=== PATIENT | male | born 1975 | race African-American/Black ===

== ENCOUNTER 2021-01-04 02:25 | Inpatient (IN) | payer MEDICAID ==
[~2021-01-04] VITALS: Ht 185.4 cm; Wt 117.5 kg
--- NOTE | 2021-01-04 02:35 | NUR ---
pt bibra c/o midepigastric pain since yesterday. Pt aaox4 breathing evenly and unlabored. Pt states he feels "burning in his chest that is relieved with melchor seltzer, but today he felt worse". Pt attached to monitor and pox. [place] and call light given
[2021-01-04 02:56] LABS: BASOPHILS # (AUTO) 0.1 /CMM (0.0-0.2); BASOPHILS % (AUTO) 0.9 % (0.0-2.0); EOSINOPHILS % (AUTO) 1.3 % (0.0-6.0); HEMATOCRIT 45 % (39-51); HEMOGLOBIN 14.6 g/dL (13.5-17.5); LYMPHOCYTES # (AUTO) 1.8 /CMM (0.8-4.8); LYMPHOCYTES % (AUTO) 29.9 % (20.0-44.0); MEAN CORPUSCULAR HGB CONC 32 g/dl (31.0-36.0); MEAN CORPUSCULAR VOLUME 84 fL (80-96); MONOCYTES # (AUTO) 0.6 /CMM (0.1-1.30); MONOCYTES % (AUTO) 9.1 % (2.0-12.0); NEUTROPHILS # (AUTO) 3.5 /CMM (1.8-8.9); NEUTROPHILS % (AUTO) 58.8 % (43.0-81.0); PLATELET COUNT (AUTO) 146 /CMM (150-450); RED BLOOD CELL COUNT(AUTO) 5.37 MIL/uL (4.5-6.0)
[2021-01-04] MEDS ORDERED: IV NS 0.9% 1,000 ML BAG IV ONE (03:00)
--- NOTE | 2021-01-04 03:00 | NUR ---
pt placed on 2L O2 for comfort
--- NOTE | 2021-01-04 03:01 | NUR ---
covid swab sent to lab
[2021-01-04] MEDS ORDERED: HYDR-4209 PO (03:02)
[2021-01-04] MEDS ORDERED: ATOR40TA PO (03:02)
[2021-01-04] MEDS ORDERED: CYAN-51 PO (03:02)
[2021-01-04] MEDS ORDERED: ASPI-1169 PO (03:02)
[2021-01-04] MEDS ORDERED: CHOL400T11 PO (03:02)
[2021-01-04] MEDS ORDERED: NITR0.4T48 SL (03:02)
[2021-01-04] MEDS ORDERED: MELA3TAB41 PO (03:02)
[2021-01-04] MEDS ORDERED: AMLO-213 PO (03:02)
[2021-01-04] MEDS ORDERED: CLOP75TA15 PO (03:02)
[2021-01-04] MEDS ORDERED: GABA-532 PO (03:02)
[2021-01-04] MEDS ORDERED: METO50TA16 PO (03:02)
[2021-01-04] MEDS ORDERED: LEVE250T2 PO (03:02)
[2021-01-04 03:12] LABS: ALANINE AMINOTRANSFERASE 43 U/L (12-78); ALBUMIN 3.9 g/dL (3.4-5.0); ALKALINE PHOSPHATASE 80 U/L (46-116); ASPARTATE AMINOTRANSFERASE 24 U/L (15-37); BILIRUBIN,DIRECT 0.1 mg/dL (0.0-0.2); BILIRUBIN,TOTAL 0.4 mg/dL (0.2-1.0); CALCIUM, SERUM 8.7 mg/dL (8.5-10.1); CARBON DIOXIDE 26 mmol/L (21-32); CHLORIDE 105 mmol/L (98-107); CREATININE 1.9 mg/dL (0.6-1.3); GLUCOSE 130 mg/dL (74-106); LIPASE 241 U/L (73-393); POTASSIUM 3.9 mmol/L (3.5-5.1); SODIUM SERUM 142 mmol/L (136-145); TOTAL PROTEIN, SERUM 7.6 g/dL (6.4-8.2); UREA NITROGEN, BLOOD 15 mg/dL (7-18)
--- NOTE | 2021-01-04 03:26 | NUR ---
taken to ct
--- NOTE | 2021-01-04 04:06 | NUR ---
DR. PA SPEAKING WITH EDIL KIRKLAND NP REGARDING ADMISSION
--- NOTE | 2021-01-04 04:50 | NUR ---
gave report to GUERA Ma for ronnie
[2021-01-04 05:20] VITALS: BP 148/96
[2021-01-04] MEDS ORDERED: ONDANSETRON HCL/PF 4 MG/2 ML VIAL IVP PRN (06:30)
[2021-01-04] MEDS ORDERED: ACETAMINOPHEN 325 MG TABLET PO PRN (06:30)
[2021-01-04] MEDS ORDERED: HYDROCODONE/APAP 5/325MG TABLET PO PRN (06:30)
[2021-01-04] MEDS ORDERED: MAG HYDROX/AL HYDROX/SIMETH 30 ML UDC PO PRN (06:30)
[2021-01-04] MEDS ORDERED: MAGNESIUM HYDROXIDE 30 ML UDC PO PRN (06:30)
[2021-01-04] MEDS ORDERED: NITROGLYCERIN 0.4 MG/TAB BOTTLE SL PRN (06:30)
[2021-01-04] MEDS ORDERED: Medication Not On Formulary EA (Melatonin 3 MG) PO SCH (07:00)
--- NOTE | 2021-01-04 07:58 | NUR ---
PROCESS ENVIRONMENTAL TECHNICIAN OPENING NOTE PATIENT IS IN BED RESTING, PATIENT IS IN NO ACUTE DISTRESS. PATIENT IS ON OXYGEN 2L VIA NASAL CANNULA. PATIENT IS ON TELE MONITOR READING SR 81. SAFETY PRECAUTIONS ARE ON. BED IS LOCKED IN THE LOWEST POSITION WITH SIDE RAILS UP, CALL LIGHT WITHIN REACH, WILL CONTINUE TO MONITOR CLOSELY THROUGHOUT THE SHIFT.
[2021-01-04] MEDS ORDERED: METOPROLOL TARTRATE 50 MG TABLET PO SCH (09:00)
[2021-01-04] MEDS: CYANOCOBALAMIN 500 MCG TABLET PO SCH (09:35)
[2021-01-04] MEDS: PANTOPRAZOLE 40 MG TABLET.DR PO SCH (09:35)
[2021-01-04] MEDS: CHOLECALCIFEROL (VITAMIN D 3) 400 UNIT TABLET PO SCH (09:36)
[2021-01-04] MEDS: CLOPIDOGREL BISULFATE 75 MG TABLET PO SCH (09:36)
[2021-01-04] MEDS: GABAPENTIN 100 MG CAPSULE PO SCH ×3 (09:36→17:15)
[2021-01-04] MEDS: AMLODIPINE BESYLATE 10 MG TABLET PO SCH (09:37)
[2021-01-04] MEDS: LEVETIRACETAM (250 MG) 250 MG TABLET PO SCH ×2 (09:37→21:06)
[2021-01-04] MEDS: ASPIRIN 81 MG TAB.CHEW PO SCH (09:39)
[2021-01-04 10:23] LABS: CHOLESTEROL 147 mg/dL (<200); HDL CHOLESTEROL 44 mg/dL (40-60); LDL 95 mg/dL (0-99); TRIGLYCERIDES 166 mg/dL (30-150)
[2021-01-04] MEDS ORDERED: METOPROLOL TARTRATE INJ 5 MG/5 ML AMPUL ONE ×3 (11:17→11:45)
[2021-01-04] MEDS ORDERED: IV NS 0.9% 250 ML IV ONE (11:17)
[2021-01-04] MEDS ORDERED: IOHEXOL-350 100 ML VIAL IV ONE (11:17)
[2021-01-04] MEDS ORDERED: CT SWABBABLE VALVE TRANS SET 1 EA INFUS.SET MC ONE (11:17)
[2021-01-04] MEDS ORDERED: NITROGLYCERIN 0.4 MG/TAB BOTTLE ONE (11:17)
[2021-01-04] MEDS: METOPROLOL TARTRATE INJ 5 MG/5 ML AMPUL IVP PRN ×10 (11:34→12:19)
[2021-01-04] MEDS ORDERED: NITROGLYCERIN 0.4 MG/TAB BOTTLE SL ONE (12:00)
[2021-01-04] MEDS: METOPROLOL TARTRATE 50 MG TABLET PO SCH ×2 (12:53→17:16)
--- NOTE | 2021-01-04 18:44 | NUR ---
STRUCTURAL IRON WORKER CLOSING NOTE PATIENT IS IN BED RESTING, PATIENT IS IN NO ACUTE DISTRESS. PATIENT IS ON OXYGEN 2L VIA NASAL CANNULA. PATIENT IS ON TELE MONITOR READING SR 80s. SAFETY PRECAUTIONS ARE ON. BED IS LOCKED IN THE LOWEST POSITION WITH SIDE RAILS UP, CALL LIGHT WITHIN REACH, ENDORSE PATIENT TO COUNTY SUPERINTENDENT OF [employer] NURSE FOR FANNY.
--- NOTE | 2021-01-04 19:15 | NUR ---
RN OPENING NOTE PATIENT IN BED AWAKE AND ALERT, PATIENT ABLE TO MAKE NEEDS KNOWN. PATIENT CURRENTLY ON 2 L OF OXYGEN SUPPLEMENTATION, BREATHING EVEN AND UNLABORED. IV ACCESS INTACT. SAFETY MEASURES IN PLACE: BED IN LOCKED AND LOWEST POSITION, HOB UP, SIDE RAILS UP, CALL LIGHT WITHIN REACH. WILL MONITOR PATIENT CLOSELY.
[2021-01-04 20:00] VITALS: BP 103/74
[2021-01-04] MEDS ORDERED: ATORVASTATIN 40 MG TABLET PO SCH (22:00)
[2021-01-05] VITALS: BP 93/64
--- NOTE | 2021-01-05 01:00 | NUR ---
BP @ 2400 93/64, METOPROLOL HELD, BP RECHECKED NOW 136/90
[2021-01-05 04:00] VITALS: BP 95/57
--- NOTE | 2021-01-05 05:00 | NUR ---
BP @ 0400 95/57, RE-CHECKED 135/92.
[2021-01-05 06:03] LABS: BILIRUBIN,URINE NEGATIVE (NEGATIVE); COLOR,URINE YELLOW (YELLOW); LEUKOCYTE ESTERASE ,URINE NEGATIVE (NEGATIVE); NITRITE, URINE NEGATIVE (NEGATIVE); PROTEIN,URINE NEGATIVE (NEGATIVE); UGLUCOSE NEGATIVE (NEGATIVE); UROBILINOGEN,URINE 0.2 EU/dL (0.2)
[2021-01-05] MEDS: METOPROLOL TARTRATE 50 MG TABLET PO SCH ×2 (06:18)
[2021-01-05 06:19] LABS: CREATININE, URINE 100.5 MG/DL (30.0-125.0); URINE TOTAL PROTEIN 15.9 mg/dL (0-11.9)
[2021-01-05 06:54] LABS: BASOPHILS % (AUTO) 0.7 % (0.0-2.0); EOSINOPHILS % (AUTO) 2.1 % (0.0-6.0); HEMATOCRIT 44 % (39-51); LYMPHOCYTES # (AUTO) 1.4 /CMM (0.8-4.8); LYMPHOCYTES % (AUTO) 26.7 % (20.0-44.0); MEAN CORPUSCULAR HGB CONC 32 g/dl (31.0-36.0); MEAN CORPUSCULAR VOLUME 84 fL (80-96); MONOCYTES # (AUTO) 0.5 /CMM (0.1-1.30); MONOCYTES % (AUTO) 9.5 % (2.0-12.0); NEUTROPHILS # (AUTO) 3.1 /CMM (1.8-8.9); PLATELET COUNT (AUTO) 120 /CMM (150-450); WHITE BLOOD COUNT (AUTO) 5.1 K/uL (4.3-11.0)
[2021-01-05 07:10] LABS: CALCIUM, SERUM 9.1 mg/dL (8.5-10.1); MAGNESIUM 1.8 mg/dL (1.8-2.4); PHOSPHORUS 4.2 mg/dL (2.5-4.9); POTASSIUM 3.9 mmol/L (3.5-5.1)
--- NOTE | 2021-01-05 07:27 | NUR ---
RN CLOSING NOTE PATIENT IN BED RESTING, EASILY AROUSED. PATIENT STILL ON 2 L OF OXYGEN SUPPLEMENTATION, TOLERATING, BREATHING EVEN AND UNLABORED. IV ACCESS STILL INTACT. SAFETY MEASURES IN PLACE: BED IN LOCKED AND LOWEST POSITION, HOB UP, SIDE RAILS UP, CALL LIGHT WITHIN REACH. ALL NEEDS MET AND ATTENDED. ENDORSED TO DAY SHIFT NURSE FOR FANNY.
--- NOTE | 2021-01-05 07:30 | NUR ---
RN OPENING NOTE PT LYING SEMIFOWLER'S IN BED, A/Ox3/3, BREATHING RA SPO2 98% WITH NO SIGNS OF RESP DISTRESS OR SOB. PT DENIES PAIN. PT AMBULATORY, STEADY GAIT. SKIN INTACT. LAC #18 SL, FLUSHED, INTACT AND PATENT, NO S/S OF INFILTRATION OR INFECTION. PT SR ON TELE HR 75. ALL PT SAFETY PRECAUTIONS IN PLACE, WILL CONT TO MONITOR
[2021-01-05 08:00] VITALS: BP 119/72
[2021-01-05] MEDS ORDERED: METOPROLOL SUCCINATE 50 MG TAB.SR.24H PO SCH (08:00)
[2021-01-05] MEDS: CYANOCOBALAMIN 500 MCG TABLET PO SCH (08:49)
[2021-01-05] MEDS: ASPIRIN 81 MG TAB.CHEW PO SCH (08:49)
[2021-01-05] MEDS: CLOPIDOGREL BISULFATE 75 MG TABLET PO SCH (08:50)
[2021-01-05] MEDS: LEVETIRACETAM (250 MG) 250 MG TABLET PO SCH (08:50)
[2021-01-05] MEDS: PANTOPRAZOLE 40 MG TABLET.DR PO SCH (08:50)
[2021-01-05] MEDS: GABAPENTIN 100 MG CAPSULE PO SCH ×2 (08:50→12:24)
[2021-01-05] MEDS: CHOLECALCIFEROL (VITAMIN D 3) 400 UNIT TABLET PO SCH (08:58)
[2021-01-05 11:06] VITALS: BP 113/61
[2021-01-05] MEDS: AMLODIPINE BESYLATE 10 MG TABLET PO SCH (11:06)
[2021-01-05] MEDS ORDERED: PANT40TA2 PO (14:41)
[2021-01-05] MEDS ORDERED: METF-440 PO (14:41)
[2021-01-05] MEDS ORDERED: METO50TA7 PO (14:41)
--- NOTE | 2021-01-05 15:05 | NUR ---
RN NOTE PT DISCHARGED IN STABLE CONDITION. REPORT GIVEN TO EMT
== END 2021-01-05 15:06 | DRG 243 ==
LOC: ER 02:29 → TELE1 04:38 → MEDSG1 01-05 11:20
PROVIDERS: ADMIT Registered Nurse; ATTEND Registered Nurse
DX: K21.9 Gastro-esophageal reflux disease without esophagitis (principal); N17.0 Acute kidney failure with tubular necrosis; G40.909 Epilepsy, unspecified, not intractable, without status epilepticus; I10 Essential (primary) hypertension; J44.9 Chronic obstructive pulmonary disease, unspecified; E78.5 Hyperlipidemia, unspecified; I12.9 Hypertensive chronic kidney disease with stage 1 through stage 4 chronic kidney disease, or unspecified chronic kidney disease; I25.2 Old myocardial infarction; N18.9 Chronic kidney disease, unspecified; I25.10 Atherosclerotic heart disease of native coronary artery without angina pectoris; Z79.899 Other long term (current) drug therapy; Z86.16 Personal history of COVID-19; Z95.5 Presence of coronary angioplasty implant and graft; Z88.0 Allergy status to penicillin; Z91.048 Other nonmedicinal substance allergy status; Z79.02 Long term (current) use of antithrombotics/antiplatelets; Z79.82 Long term (current) use of aspirin; M51.26 Other intervertebral disc displacement, lumbar region; E11.22 Type 2 diabetes mellitus with diabetic chronic kidney disease; E66.01 Morbid (severe) obesity due to excess calories; J98.11 Atelectasis; Z68.34 Body mass index [BMI] 34.0-34.9, adult
CPT/HCPCS: 36415; 71045-TC; 75574; 76770-TC; 80048-TC; 80061-TC; 80076-TC; 82570-TC; 83690-TC; 83735-TC; 84100-TC; 84155-TC; 84300-TC; 84484-TC; 85025-TC; 87081-TC; 93307-TC; C9803; G0378; J3490; J7050; Q9967

== ENCOUNTER 2021-01-20 04:48 | Emergency (ER) | payer MEDICAID ==
[~2021-01-20] VITALS: Ht 185.4 cm; Wt 108.0 kg
[~2021-01-20 04:48] MED LIST: AMLO-213 PO; ASPI-1169 PO; ATOR40TA PO; CHOL400T11 PO; CLOP75TA15 PO; CYAN-51 PO; GABA-532 PO; LEVE250T2 PO; MELA3TAB41 PO; METF-440 PO; METO50TA7 PO; NITR0.4T48 SL; PANT40TA2 PO
--- NOTE | 2021-01-20 04:52 | NUR ---
pt bibra c/o midsternal CP that started friday night. Pt aaox4 breathing evenly and unlabored. Pt took 2 nitro and was given 1 nitro by EMS and 325mg aspirin. Pt skin warm, dry, and intact. Left ac 18g initiated RELAY WORKER. Blood obtained and sent to lab. Pt attached to monitor. EMT at bedside for ekg. Pt given blanket and call light within reach
--- NOTE | 2021-01-20 05:00 | NUR ---
Pt placed on 1L O2 for comfort
--- NOTE | 2021-01-20 05:10 | NUR ---
called lab for specimen hand picker
[2021-01-20 05:20] LABS: BASOPHILS # (AUTO) 0.1 /CMM (0.0-0.2); BASOPHILS % (AUTO) 0.7 % (0.0-2.0); EOSINOPHILS % (AUTO) 1.9 % (0.0-6.0); HEMATOCRIT 42 % (39-51); HEMOGLOBIN 13.7 g/dL (13.5-17.5); LYMPHOCYTES % (AUTO) 29.3 % (20.0-44.0); MEAN CORPUSCULAR HGB CONC 33 g/dl (31.0-36.0); MEAN CORPUSCULAR VOLUME 82 fL (80-96); MONOCYTES # (AUTO) 0.5 /CMM (0.1-1.30); MONOCYTES % (AUTO) 7.5 % (2.0-12.0); NEUTROPHILS # (AUTO) 4.2 /CMM (1.8-8.9); NEUTROPHILS % (AUTO) 60.6 % (43.0-81.0); PLATELET COUNT (AUTO) 157 /CMM (150-450); RED BLOOD CELL COUNT(AUTO) 5.08 MIL/uL (4.5-6.0); WHITE BLOOD COUNT (AUTO) 6.9 K/uL (4.3-11.0)
[2021-01-20 05:32] LABS: CARBON DIOXIDE 29 mmol/L (21-32); CHLORIDE 104 mmol/L (98-107); GLUCOSE 110 mg/dL (74-106); POTASSIUM 3.7 mmol/L (3.5-5.1); SODIUM SERUM 142 mmol/L (136-145); UREA NITROGEN, BLOOD 16 mg/dL (7-18)
[2021-01-20 05:37] LABS: ALANINE AMINOTRANSFERASE 23 U/L (12-78); ALKALINE PHOSPHATASE 69 U/L (46-116); ASPARTATE AMINOTRANSFERASE 13 U/L (15-37); BILIRUBIN,DIRECT 0.1 mg/dL (0.0-0.2); BILIRUBIN,TOTAL 0.4 mg/dL (0.2-1.0); TOTAL PROTEIN, SERUM 7.4 g/dL (6.4-8.2)
--- NOTE | 2021-01-20 05:43 | NUR ---
repeat Troponin at 0843
[2021-01-20] MEDS ORDERED: MAG HYDROX/AL HYDROX/SIMETH 30 ML UDC ONE (05:45)
[2021-01-20] MEDS ORDERED: MAG HYDROX/AL HYDROX/SIMETH 30 ML UDC PO ONE (06:00)
--- NOTE | 2021-01-20 07:05 | NUR ---
gave report to GUERA Warren for ronnie
--- NOTE | 2021-01-20 08:31 | NUR ---
CALLED DR. HYDE TO CALL US BACK.
[2021-01-20] MEDS ORDERED: FAMO-131 PO (08:46)
--- NOTE | 2021-01-20 08:52 | NUR ---
CALLED [facility] FOR ETA OF 1200 PER CECILE
--- NOTE | 2021-01-20 08:54 | NUR ---
CALLED [facility] FOR TRANSPORT ETA 30 PER MARISA
[2021-01-20 09:37] VITALS: BP 133/83
--- NOTE | 2021-01-20 09:37 | NUR ---
patient picked up by private ambulance going back to board and care in no distress. IV removed. Catheter intact and site benign. Pressure and 4x4 applied to site. No bleeding noted.
== END 2021-01-20 09:37 ==
LOC: ER 04:50
DX: R07.89 Other chest pain (principal); I10 Essential (primary) hypertension; I25.2 Old myocardial infarction; E78.5 Hyperlipidemia, unspecified; Z98.890 Other specified postprocedural states; Z86.16 Personal history of COVID-19; Z88.0 Allergy status to penicillin; Z91.048 Other nonmedicinal substance allergy status; Z79.899 Other long term (current) drug therapy; Z79.82 Long term (current) use of aspirin
CPT/HCPCS: 36415; 71045-TC; 80048-TC; 80076-TC; 84484-TC; 85025-TC; 85730-TC

== ENCOUNTER 2021-01-30 01:13 | Emergency (ER) | payer MEDICAID ==
[~2021-01-30] VITALS: Ht 185.4 cm; Wt 106.6 kg
[~2021-01-30 01:13] MED LIST changes: +FAMO-131 PO; -NITR0.4T48 SL
--- NOTE | 2021-01-30 01:15 | NUR ---
MAYNOR 102 FROM [facility] FRO C/O MIDSTERNAL, NON RADIATING CP 02/24. REC'D NITRO 0.4MG SL AND ASA 324 PO RADIO ELECTRONICS TECHNICIAN. PT WAS ASSISTED TO BED 12 ER , WAS PLACED ON A MONITOR . VSS. WILL CONT TO MONITOR,
[2021-01-30 01:40] LABS: BASOPHILS # (AUTO) 0.1 /CMM (0.0-0.2); BASOPHILS % (AUTO) 1.1 % (0.0-2.0); EOSINOPHILS % (AUTO) 1.2 % (0.0-6.0); HEMATOCRIT 44 % (39-51); HEMOGLOBIN 14.2 g/dL (13.5-17.5); LYMPHOCYTES # (AUTO) 2.1 /CMM (0.8-4.8); MEAN CORPUSCULAR HGB CONC 32 g/dl (31.0-36.0); MEAN CORPUSCULAR VOLUME 84 fL (80-96); MONOCYTES # (AUTO) 0.7 /CMM (0.1-1.30); NEUTROPHILS # (AUTO) 5.4 /CMM (1.8-8.9); NEUTROPHILS % (AUTO) 64.7 % (43.0-81.0); PLATELET COUNT (AUTO) 164 /CMM (150-450); RED BLOOD CELL COUNT(AUTO) 5.28 MIL/uL (4.5-6.0); WHITE BLOOD COUNT (AUTO) 8.3 K/uL (4.3-11.0)
[2021-01-30 01:52] LABS: CALCIUM, SERUM 9.5 mg/dL (8.5-10.1); CARBON DIOXIDE 29 mmol/L (21-32); CHLORIDE 104 mmol/L (98-107); CREATININE 2.1 mg/dL (0.6-1.3); GLUCOSE 113 mg/dL (74-106); POTASSIUM 4.3 mmol/L (3.5-5.1); SODIUM SERUM 143 mmol/L (136-145); UREA NITROGEN, BLOOD 22 mg/dL (7-18)
--- NOTE | 2021-01-30 05:53 | NUR ---
REPORT CALLED TO [facility] STAFF.
--- NOTE | 2021-01-30 06:00 | NUR ---
TRANSPORT CALLED ([facility]) ETA 1 HOUR
[2021-01-30 06:13] VITALS: BP 133/89
--- NOTE | 2021-01-30 07:14 | NUR ---
[facility] AT BED SIDE TO SUPERVISOR KEYMODULE ASSEMBLY THE PT
== END 2021-01-30 07:22 | disposition home or self-care (01) ==
LOC: ER 01:14
DX: R07.89 Other chest pain (principal); I10 Essential (primary) hypertension; I25.2 Old myocardial infarction; E78.5 Hyperlipidemia, unspecified; Z95.5 Presence of coronary angioplasty implant and graft; Z88.0 Allergy status to penicillin; Z91.09 Other allergy status, other than to drugs and biological substances; Z79.82 Long term (current) use of aspirin; Z79.899 Other long term (current) drug therapy
CPT/HCPCS: 36415; 71045-TC; 80048-TC; 84484-TC; 85025-TC

== ENCOUNTER 2021-02-09 00:19 | Emergency (ER) | payer MEDICAID ==
[~2021-02-09] VITALS: Ht 185.4 cm; Wt 106.6 kg
--- NOTE | 2021-02-09 00:25 | NUR ---
PT BIBRA C/O MIDSTERNAL CP AND FEELING "IRREGULAR HEARTBEATS". PT AAOX4 BREATHING EVENLY AND UNLABORED. PT ATTACHED TO AIRPLANE RENTAL CLERK AND POX. EMT AT BEDSIDE FOR EKG. MD AT BEDSIDE FOR EVAL. PT GIVEN BLANKET AND CALL LIGHT WITHIN REACH
--- NOTE | 2021-02-09 00:29 | NUR ---
LAB AT BEDSIDE
[2021-02-09 00:46] LABS: BASOPHILS # (AUTO) 0.1 K/uL (0.0-0.2); BASOPHILS % (AUTO) 0.8 % (0.0-2.0); EOSINOPHILS % (AUTO) 1.3 % (0.0-6.0); HEMATOCRIT 42 % (39-51); HEMOGLOBIN 13.4 g/dL (13.5-17.5); LYMPHOCYTES # (AUTO) 1.5 K/uL (0.8-4.8); LYMPHOCYTES % (AUTO) 20.2 % (20.0-44.0); MEAN CORPUSCULAR HGB CONC 32 g/dl (31.0-36.0); MEAN CORPUSCULAR VOLUME 83 fL (80-96); MONOCYTES # (AUTO) 0.5 K/uL (0.1-1.30); MONOCYTES % (AUTO) 6.4 % (2.0-12.0); NEUTROPHILS # (AUTO) 5.3 K/uL (1.8-8.9); NEUTROPHILS % (AUTO) 71.3 % (43.0-81.0); PLATELET COUNT (AUTO) 158 K/uL (150-450); RED BLOOD CELL COUNT(AUTO) 5.03 MIL/uL (4.5-6.0); WHITE BLOOD COUNT (AUTO) 7.4 K/uL (4.3-11.0)
[2021-02-09 01:49] LABS: CALCIUM, SERUM 8.8 mg/dL (8.5-10.1); CARBON DIOXIDE 30 mmol/L (21-32); CHLORIDE 103 mmol/L (98-107); GLUCOSE 104 mg/dL (74-106); POTASSIUM 3.9 mmol/L (3.5-5.1); SODIUM SERUM 141 mmol/L (136-145); UREA NITROGEN, BLOOD 17 mg/dL (7-18)
--- NOTE | 2021-02-09 05:08 | NUR ---
[facility] CALLED FOR TRANSPORT. ETA 60 MINUTES.
--- NOTE | 2021-02-09 05:50 | NUR ---
Patient discharged to home in stable condition. Written and verbal after care instructions given. Patient verbalizes understanding of instruction.
--- NOTE | 2021-02-09 05:50 | NUR ---
gave report to ems
[2021-02-09 06:07] VITALS: BP 126/85
== END 2021-02-09 05:50 | disposition home or self-care (01) ==
LOC: ER 00:21
DX: R00.2 Palpitations (principal); I10 Essential (primary) hypertension; I25.2 Old myocardial infarction; E78.5 Hyperlipidemia, unspecified; Z98.890 Other specified postprocedural states; Z88.0 Allergy status to penicillin; Z91.048 Other nonmedicinal substance allergy status; Z79.899 Other long term (current) drug therapy; Z79.82 Long term (current) use of aspirin
CPT/HCPCS: 36415; 71045-TC; 80048-TC; 83880; 84484-TC; 85025-TC

== ENCOUNTER 2021-02-12 22:28 | Emergency (ER) | payer MEDICAID ==
[~2021-02-12] VITALS: Ht 185.4 cm; Wt 117.9 kg
[2021-02-12 22:28] VITALS: BP 122/78
[2021-02-12] MEDS ORDERED: HYDR-4209 PO (23:10)
[2021-02-12] MEDS ORDERED: ONDANSETRON 4 MG TAB.RAPDIS SL ONE (23:30)
[2021-02-12] MEDS ORDERED: HYDROCODONE/APAP 10/325MG TABLET PO ONE (23:30)
--- NOTE | 2021-02-12 23:33 | NUR ---
CALLED [facility] WILL COME WITHIN 45MINUTES -1HR.
[2021-02-12] MEDS ORDERED: ONDANSETRON 4 MG TAB.RAPDIS ONE (23:34)
[2021-02-12] MEDS ORDERED: HYDROCODONE/APAP 10/325MG TABLET ONE (23:34)
--- NOTE | 2021-02-12 23:40 | NUR ---
report given to SHAWN verma at the [facility].
--- NOTE | 2021-02-12 23:55 | NUR ---
[facility] WAS REASSIGNED TO TAKE THIS PT BACK TO HIS FACILIY INSTEAD OF ANOTHER PT. UNIT IS HERE NOW FOR TRANSPORT.
--- NOTE | 2021-02-13 00:17 | NUR ---
PT WAS PICKED UP BY [facility] IN STABLE CONDITION VIA GURNEY AND WAS TRANSFERRED BACK TO THE FACILITY
[2021-02-14] MEDS ORDERED: CYCL5TAB PO (00:41)
[2021-02-14] MEDS ORDERED: ACET-2605 PO (00:41)
== END 2021-02-13 00:41 ==
LOC: ER 22:30
DX: G89.29 Other chronic pain (principal); M54.5 Low back pain; R20.2 Paresthesia of skin; I10 Essential (primary) hypertension; I25.2 Old myocardial infarction; E78.5 Hyperlipidemia, unspecified; J45.909 Unspecified asthma, uncomplicated; Z95.818 Presence of other cardiac implants and grafts; Z88.0 Allergy status to penicillin; Z91.048 Other nonmedicinal substance allergy status; Z79.899 Other long term (current) drug therapy; Z79.82 Long term (current) use of aspirin; Z79.84 Long term (current) use of oral hypoglycemic drugs
CPT/HCPCS: 82962; 99283; Q0162

== ENCOUNTER 2021-02-13 23:18 | Emergency (ER) | payer MEDICAID ==
[~2021-02-13] VITALS: Ht 188 cm; Wt 117.9 kg
[~2021-02-13 23:18] MED LIST changes: +HYDR-4209 PO
--- NOTE | 2021-02-13 23:21 | NUR ---
PT [facility] C/O CHRONIC LOW BACK PAIN. PLACED IN BED 7 ON MONITOR AND PULSE OX. AWAITING ER MD FOR EVAL AND ORDERS.
[2021-02-13] MEDS ORDERED: HYDROCODONE/APAP 5/325MG TABLET PO ONE (23:30)
[2021-02-13] MEDS ORDERED: HYDROCODONE/APAP 5/325MG TABLET ONE (23:33)
[2021-02-14] MEDS ORDERED: CYCL5TAB PO (00:41)
[2021-02-14] MEDS ORDERED: ACET-2605 PO (00:41)
--- NOTE | 2021-02-14 00:58 | NUR ---
Elis marcos in [facility] - 02/14/21 at 0101 by MICHAEL CALLED [facility], ETA 90 MINS
--- NOTE | 2021-02-14 01:00 | NUR ---
CALLED [facility], ETA 90 MINS.
--- NOTE | 2021-02-14 02:14 | NUR ---
CALLED FACILITY, SPOKE TO [facility] FOR UPDATE. PT TRANSFERED BACK.
[2021-02-14 02:15] VITALS: BP 129/73
== END 2021-02-14 02:15 | disposition home or self-care (01) ==
LOC: ER 23:19
DX: G89.29 Other chronic pain (principal); M54.16 Radiculopathy, lumbar region; I10 Essential (primary) hypertension; I25.2 Old myocardial infarction; E78.5 Hyperlipidemia, unspecified; J45.909 Unspecified asthma, uncomplicated; Z98.890 Other specified postprocedural states; Z88.0 Allergy status to penicillin; Z91.048 Other nonmedicinal substance allergy status; Z79.899 Other long term (current) drug therapy; Z79.82 Long term (current) use of aspirin
CPT/HCPCS: 72131-TC

== ENCOUNTER 2021-02-15 23:01 | Emergency (ER) | payer MEDICAID ==
[~2021-02-15] VITALS: Ht 190.5 cm; Wt 117.9 kg
[~2021-02-15 23:01] MED LIST changes: +ACET-2605 PO; +CYCL5TAB PO
[2021-02-15] MEDS ORDERED: ONDANSETRON HCL/PF 4 MG/2 ML VIAL ONE (23:12)
[2021-02-15 23:22] LABS: BASOPHILS # (AUTO) 0.1 K/uL (0.0-0.2); EOSINOPHILS % (AUTO) 1.4 % (0.0-6.0); HEMATOCRIT 39 % (39-51); HEMOGLOBIN 12.4 g/dL (13.5-17.5); LYMPHOCYTES # (AUTO) 1.7 K/uL (0.8-4.8); LYMPHOCYTES % (AUTO) 21.5 % (20.0-44.0); MEAN CORPUSCULAR HGB CONC 32 g/dl (31.0-36.0); MEAN CORPUSCULAR VOLUME 83 fL (80-96); MONOCYTES # (AUTO) 0.7 K/uL (0.1-1.30); MONOCYTES % (AUTO) 8.5 % (2.0-12.0); NEUTROPHILS # (AUTO) 5.5 K/uL (1.8-8.9); NEUTROPHILS % (AUTO) 67.6 % (43.0-81.0); PLATELET COUNT (AUTO) 165 K/uL (150-450); RED BLOOD CELL COUNT(AUTO) 4.69 MIL/uL (4.5-6.0); WHITE BLOOD COUNT (AUTO) 8.1 K/uL (4.3-11.0)
[2021-02-15] MEDS: IV NS 0.9% 1,000 ML BAG IV ONE (23:23)
[2021-02-15] MEDS: ONDANSETRON HCL/PF 4 MG/2 ML VIAL IVP ONE (23:23)
--- NOTE | 2021-02-15 23:25 | NUR ---
PATIENT [id number] FROM [facility] AND [facility], C/O EPISODE OF VOMITTING AFTER DINNER. PATIENT IS A/O X 4, RR EVEN AND UNLABORED, NO SIGNS OF SOB NOTED. PATIENT CONNCETED TO OFFICE RECEPTIONIST AND POX. WILL CONTINUE TO MONITOR.
[2021-02-15 23:31] LABS: CALCIUM, SERUM 8.6 mg/dL (8.5-10.1); CARBON DIOXIDE 28 mmol/L (21-32); CHLORIDE 106 mmol/L (98-107); CREATININE 2.1 mg/dL (0.6-1.3); GLUCOSE 107 mg/dL (74-106); SODIUM SERUM 142 mmol/L (136-145); UREA NITROGEN, BLOOD 21 mg/dL (7-18)
[2021-02-15 23:37] LABS: ALANINE AMINOTRANSFERASE 18 U/L (12-78); ALBUMIN 3.5 g/dL (3.4-5.0); ALKALINE PHOSPHATASE 56 U/L (46-116); ASPARTATE AMINOTRANSFERASE 14 U/L (15-37); BILIRUBIN,DIRECT 0.1 mg/dL (0.0-0.2); BILIRUBIN,TOTAL 0.3 mg/dL (0.2-1.0); LIPASE 264 U/L (73-393); TOTAL PROTEIN, SERUM 7.2 g/dL (6.4-8.2)
[2021-02-16] MEDS ORDERED: ONDA4TAB5 PO (00:16)
--- NOTE | 2021-02-16 00:21 | NUR ---
[facility] WAS ARRANGED FOR BACK TO THE FACILITY IN 90 MIN
--- NOTE | 2021-02-16 00:25 | NUR ---
CALLED [facility] AND INFORMED CHHAYA ZHAO PT'S D/C STATUS
[2021-02-16 02:18] VITALS: BP 131/68
--- NOTE | 2021-02-16 02:34 | NUR ---
[facility] PICKED UP PATIENT FOR TRANSPORT, PATIENT IN NO ACUTE DISTRESS.
== END 2021-02-16 02:35 ==
LOC: ER 23:03
DX: R11.2 Nausea with vomiting, unspecified (principal); I10 Essential (primary) hypertension; I25.2 Old myocardial infarction; E78.5 Hyperlipidemia, unspecified; Z98.890 Other specified postprocedural states; Z88.0 Allergy status to penicillin; Z91.048 Other nonmedicinal substance allergy status; Z79.899 Other long term (current) drug therapy
CPT/HCPCS: 36415; 80048; 80076; 83690; 84484; 85025; 93005; 96361; 96374; 99284; J2405; J7030

== ENCOUNTER 2021-08-09 14:46 | Emergency (ER) | payer MEDICAID ==
[~2021-08-09] VITALS: Ht 185.4 cm; Wt 119.3 kg
[~2021-08-09 14:46] MED LIST changes: +ONDA4TAB5 PO
--- NOTE | 2021-08-09 14:46 | NUR ---
[id number] FROM [facility] TERM C/O CHEST PAIN X6HRS P/S 01/25, GIVEN NITRO AND ASPIRIN INVESTIGATOR CASH SHORTAGE. 12/25 PAIN ON PS. PT ATTCHED TO MONITOR. BREATHING IS EVEN AND UNALBORED.
--- NOTE | 2021-08-09 14:51 | NUR ---
IV ESTABLISH L AC 20G LABS WERE DRAWN AND COLLECTED AT BEDSIDE
[2021-08-09 15:26] LABS: BASOPHILS % (AUTO) 0.6 % (0.0-2.0); EOSINOPHILS % (AUTO) 1.1 % (0.0-6.0); HEMATOCRIT 43 % (39-51); HEMOGLOBIN 13.8 g/dL (13.5-17.5); LYMPHOCYTES % (AUTO) 24.7 % (20.0-44.0); MEAN CORPUSCULAR HGB CONC 32 g/dl (31.0-36.0); MEAN CORPUSCULAR VOLUME 82 fL (80-96); MONOCYTES # (AUTO) 0.6 K/uL (0.1-1.30); MONOCYTES % (AUTO) 7.6 % (2.0-12.0); NEUTROPHILS # (AUTO) 5.3 K/uL (1.8-8.9); PLATELET COUNT (AUTO) 155 K/uL (150-450); RED BLOOD CELL COUNT(AUTO) 5.29 MIL/uL (4.5-6.0)
[2021-08-09 15:37] LABS: CALCIUM, SERUM 9.3 mg/dL (8.5-10.1); CARBON DIOXIDE 27 mmol/L (21-32); CHLORIDE 103 mmol/L (98-107); GLUCOSE 123 mg/dL (74-106); POTASSIUM 3.8 mmol/L (3.5-5.1); SODIUM SERUM 140 mmol/L (136-145); UREA NITROGEN, BLOOD 16 mg/dL (7-18)
[2021-08-09 15:44] LABS: ALANINE AMINOTRANSFERASE 26 U/L (12-78); ALKALINE PHOSPHATASE 96 U/L (46-116); ASPARTATE AMINOTRANSFERASE 13 U/L (15-37); BILIRUBIN,DIRECT 0.1 mg/dL (0.0-0.2); BILIRUBIN,TOTAL 0.3 mg/dL (0.2-1.0); TOTAL PROTEIN, SERUM 8.1 g/dL (6.4-8.2)
[2021-08-09 16:19] VITALS: BP 139/97
--- NOTE | 2021-08-09 16:33 | NUR ---
CALLED [facility] AND SET UP S TRANSPORT TO [facility]. ETA [id number]
--- NOTE | 2021-08-09 18:02 | NUR ---
IV removed. Catheter intact and site benign. Pressure and 4x4 applied to site. No bleeding noted. Patient was provided discharge paper and verbalized understanding. Transportation arrived to take patient back to assisted living facility.
== END 2021-08-09 18:05 ==
LOC: ER 14:53
DX: R07.89 Other chest pain (principal); I10 Essential (primary) hypertension; I25.2 Old myocardial infarction; J45.909 Unspecified asthma, uncomplicated; Z98.890 Other specified postprocedural states; Z88.0 Allergy status to penicillin; Z91.048 Other nonmedicinal substance allergy status; Z79.899 Other long term (current) drug therapy; Z79.82 Long term (current) use of aspirin
CPT/HCPCS: 36415; 71045-TC; 80048-TC; 80076-TC; 84484-TC; 85025-TC

== ENCOUNTER 2021-09-02 12:43 | Emergency (ER) | payer MEDICAID ==
[~2021-09-02] VITALS: Ht 185.4 cm; Wt 120.7 kg
--- NOTE | 2021-09-02 12:58 | NUR ---
PT BIBRA 102 C/O COUGH AND CONGESTION X 2 DAYS. PT A/OX3. TOLERATING R/A WELL WITH NO SOB. AT 100%
[2021-09-02] MEDS ORDERED: GUAIFENESIN/D-METHORPHAN HB 5 ML UDC PO ONE (13:30)
[2021-09-02] MEDS ORDERED: GUAIFENESIN/D-METHORPHAN HB 5 ML UDC ONE (14:09)
[2021-09-02] MEDS ORDERED: ONDA4TAB5 PO (14:25)
[2021-09-02 14:33] VITALS: BP 145/100
--- NOTE | 2021-09-02 14:35 | NUR ---
Written and verbal after care instructions given. Patient verbalizes understanding of instruction. PT SIGNED DC PAPER WORK.
--- NOTE | 2021-09-02 16:00 | NUR ---
TAXI VOUCHER PROVIDED.
--- NOTE | 2021-09-02 16:02 | NUR ---
Patient discharged to home in stable condition. Written and verbal after care instructions given. Patient verbalizes understanding of instruction.
== END 2021-09-02 16:04 ==
LOC: ER 12:53
DX: B34.9 Viral infection, unspecified (principal); I25.2 Old myocardial infarction; I10 Essential (primary) hypertension; J45.909 Unspecified asthma, uncomplicated; Z88.0 Allergy status to penicillin; Z91.048 Other nonmedicinal substance allergy status; Z86.16 Personal history of COVID-19; Z79.82 Long term (current) use of aspirin; Z79.899 Other long term (current) drug therapy
CPT/HCPCS: 71045-TC

== ENCOUNTER 2021-09-02 20:35 | Emergency (ER) | payer MEDICAID ==
[~2021-09-02] VITALS: Ht 185.4 cm; Wt 122.9 kg
--- NOTE | 2021-09-02 21:54 | NUR ---
[id number]. CHEST TIGHTNESS, NAUSEA, VOMMTING AND DIARRHEA X TODAY WAS HERE EARLIER FOR VIRAL ILLNESS. PT A/OX4. TOLERATING R/A WELL AT 96%
[2021-09-02] MEDS ORDERED: MAG HYDROX/AL HYDROX/SIMETH 30 ML UDC PO ONE (22:30)
[2021-09-02] MEDS ORDERED: LIDOCAINE VISCOUS 2% UD 15 ML UDC MM ONE (22:30)
[2021-09-02] MEDS ORDERED: MAG HYDROX/AL HYDROX/SIMETH 30 ML UDC ONE (22:32)
[2021-09-02] MEDS ORDERED: LIDOCAINE VISCOUS 2% UD 15 ML UDC ONE (22:32)
--- NOTE | 2021-09-02 22:36 | NUR ---
PHLEBOTMIST AT PT'S BEDSIDE
[2021-09-02 23:03] LABS: BASOPHILS % (AUTO) 0.5 % (0.0-2.0); EOSINOPHILS % (AUTO) 0.5 % (0.0-6.0); HEMATOCRIT 43 % (39-51); HEMOGLOBIN 13.7 g/dL (13.5-17.5); LYMPHOCYTES # (AUTO) 1.2 K/uL (0.8-4.8); LYMPHOCYTES % (AUTO) 12.8 % (20.0-44.0); MEAN CORPUSCULAR HGB CONC 32 g/dl (31.0-36.0); MEAN CORPUSCULAR VOLUME 82 fL (80-96); MONOCYTES # (AUTO) 0.7 K/uL (0.1-1.30); MONOCYTES % (AUTO) 7.2 % (2.0-12.0); NEUTROPHILS # (AUTO) 7.7 K/uL (1.8-8.9); PLATELET COUNT (AUTO) 160 K/uL (150-450); RED BLOOD CELL COUNT(AUTO) 5.24 MIL/uL (4.5-6.0); WHITE BLOOD COUNT (AUTO) 9.7 K/uL (4.3-11.0)
[2021-09-02 23:45] LABS: CALCIUM, SERUM 8.8 mg/dL (8.5-10.1); CARBON DIOXIDE 27 mmol/L (21-32); CHLORIDE 102 mmol/L (98-107); GLUCOSE 127 mg/dL (74-106); SODIUM SERUM 140 mmol/L (136-145); UREA NITROGEN, BLOOD 19 mg/dL (7-18)
--- NOTE | 2021-09-03 02:58 | NUR ---
Patient discharged to home in stable condition. Written and verbal after care instructions given. Patient verbalizes understanding of instruction. Pt ambulatory with a steady gait
[2021-09-03 03:02] VITALS: BP 146/89
== END 2021-09-03 03:02 | disposition home or self-care (01) ==
LOC: ER 20:35
DX: B34.9 Viral infection, unspecified (principal); Z20.822 Contact with and (suspected) exposure to COVID-19; I25.10 Atherosclerotic heart disease of native coronary artery without angina pectoris; I25.2 Old myocardial infarction; I10 Essential (primary) hypertension; E78.5 Hyperlipidemia, unspecified; J45.909 Unspecified asthma, uncomplicated; Z95.818 Presence of other cardiac implants and grafts; Z88.0 Allergy status to penicillin; Z91.048 Other nonmedicinal substance allergy status; Z79.899 Other long term (current) drug therapy; Z79.82 Long term (current) use of aspirin
CPT/HCPCS: 36415; 80048; 84484; 85025; 87426; 93005; 99284; C9803

== ENCOUNTER 2022-01-16 14:47 | Emergency (ER) | payer MEDICAID ==
[~2022-01-16] VITALS: Ht 185.4 cm; Wt 113.9 kg
--- NOTE | 2022-01-16 14:56 | NUR ---
BIBRA 102 FOR C/O N/V AND DIZZINESS FOR 3 DAYS. IN ROOM AIR AND DENIES SOB. RESPIRATION REGULAR AND UNLABORED. ATTACHED TO THE MONITOR. WILL CONTINUE TO MONITOR THE PATIENT.
--- NOTE | 2022-01-16 15:00 | NUR ---
PATIENT CAME WITH IV CANNULA ON RIGHT WRIST USING G18 NEEDLE. BLOOD DRAWN AND SENT TO LAB
--- NOTE | 2022-01-16 15:20 | NUR ---
URINE SPECIMEN SENT TO LAB
[2022-01-16 16:07] LABS: BASOPHILS % (AUTO) 0.4 % (0.0-2.0); EOSINOPHILS % (AUTO) 2.3 % (0.0-6.0); HEMATOCRIT 39 % (39-51); HEMOGLOBIN 12.6 g/dL (13.5-17.5); LYMPHOCYTES # (AUTO) 1.8 K/uL (0.8-4.8); LYMPHOCYTES % (AUTO) 21.7 % (20.0-44.0); MEAN CORPUSCULAR HGB CONC 32 g/dl (31.0-36.0); MEAN CORPUSCULAR VOLUME 80 fL (80-96); MONOCYTES # (AUTO) 0.6 K/uL (0.1-1.30); MONOCYTES % (AUTO) 7.1 % (2.0-12.0); NEUTROPHILS # (AUTO) 5.6 K/uL (1.8-8.9); NEUTROPHILS % (AUTO) 68.5 % (43.0-81.0); PLATELET COUNT (AUTO) 162 K/uL (150-450); RED BLOOD CELL COUNT(AUTO) 4.86 MIL/uL (4.5-6.0); WHITE BLOOD COUNT (AUTO) 8.2 K/uL (4.3-11.0)
[2022-01-16] MEDS ORDERED: METOCLOPRAMIDE HCL 10 MG/2 ML VIAL ONE (16:23)
[2022-01-16] MEDS ORDERED: MECLIZINE HCL 25 MG TABLET ONE (16:23)
[2022-01-16] MEDS: IV NS 0.9% 1,000 ML BAG IV ONE (16:28)
[2022-01-16] MEDS: MECLIZINE HCL 12.5 MG TABLET PO ONE (16:29)
[2022-01-16] MEDS: METOCLOPRAMIDE HCL 10 MG/2 ML VIAL IV ONE (16:29)
[2022-01-16 16:31] LABS: CALCIUM, SERUM 8.9 mg/dL (8.5-10.1); CARBON DIOXIDE 28 mmol/L (21-32); CHLORIDE 104 mmol/L (98-107); GLUCOSE 102 mg/dL (74-106); POTASSIUM 3.9 mmol/L (3.5-5.1); SODIUM SERUM 140 mmol/L (136-145); UREA NITROGEN, BLOOD 19 mg/dL (7-18)
[2022-01-16] MEDS ORDERED: MECL-159 PO (17:15)
--- NOTE | 2022-01-16 18:15 | NUR ---
IV removed. Catheter intact and site benign. Pressure and 4x4 applied to site. No bleeding noted.Patient discharged to home in stable condition. Written and verbal after care instructions given. Patient verbalizes understanding of instruction.
[2022-01-16 18:17] VITALS: BP 130/85
== END 2022-01-16 18:15 | disposition home or self-care (01) ==
LOC: ER 14:50
DX: R42 Dizziness and giddiness (principal); I10 Essential (primary) hypertension; I25.2 Old myocardial infarction; E78.5 Hyperlipidemia, unspecified; J45.909 Unspecified asthma, uncomplicated; Z86.69 Personal history of other diseases of the nervous system and sense organs; Z86.16 Personal history of COVID-19; Z88.8 Allergy status to other drugs, medicaments and biological substances; Z79.899 Other long term (current) drug therapy
CPT/HCPCS: 36415; 70450; 80048; 83880; 84484; 85025; 85730; 93005; 96361; 96374; 99285; J2765; J7030; J8597

== ENCOUNTER 2023-03-31 02:04 | Inpatient (IN) | payer MEDICAID ==
[~2023-03-31] VITALS: Ht 185.4 cm; Wt 119.7 kg
[2023-03-31] VITALS (15 sets, daily range): BP systolic 100–134; BP diastolic 77–94; TEMP 97.3–97.7; O2SAT 91–97
[~2023-03-31 02:04] MED LIST changes: +CETI1TAB9 PO; +GUAI5SYR GT; +MECL-159 PO
[2023-03-31] MEDS ORDERED: IV NS 0.9% 1,000 ML BAG IV ONE ×3 (02:30→03:30)
[2023-03-31 02:41] LABS: SITE, VBG Other; VBG BASE EXCESS -4.8 mmol/L (-3-3); VBG COHb 0.6 %; VBG MetHb 0.4 %; VBG O2Hb 83.3 %; VBG OXYGEN SATURATION 84.1 %; VBG PCO2 39.7 mmHg (40-52); VBG PH 7.334 (7.31-7.41); VBG PO2 51.7 mmHg (30-50); VBG TOTAL HEMOGLOBIN 15.5 G/dL (13.5-18.0)
[2023-03-31 02:44] LABS: BASOPHILS % (AUTO) 0.4 % (0.0-2.0); EOSINOPHILS # (AUTO) 0.1 K/uL (0.0-0.7); EOSINOPHILS % (AUTO) 0.8 % (0.0-6.0); HEMATOCRIT 46 % (39-51); HEMOGLOBIN 14.6 g/dL (13.5-17.5); LYMPHOCYTES # (AUTO) 1.4 K/uL (0.8-4.8); LYMPHOCYTES % (AUTO) 18.4 % (20.0-44.0); MEAN CORPUSCULAR HEMOGLOBIN 25 PG (26.0-33.0); MEAN CORPUSCULAR HGB CONC 32 g/dl (31.0-36.0); MEAN CORPUSCULAR VOLUME 80 fL (80-96); MONOCYTES # (AUTO) 0.6 K/uL (0.1-1.30); MONOCYTES % (AUTO) 7.4 % (2.0-12.0); NEUTROPHILS # (AUTO) 5.5 K/uL (1.8-8.9); PLATELET COUNT (AUTO) 151 K/uL (150-450); RED BLOOD CELL COUNT(AUTO) 5.76 MIL/uL (4.5-6.0); RED CELL DISTRIBUTION WIDTH 13.5 % (11.5-15.0); WHITE BLOOD COUNT (AUTO) 7.6 K/uL (4.3-11.0)
[2023-03-31 03:01] LABS: ALANINE AMINOTRANSFERASE 34 U/L (12-78); ALBUMIN 4.7 g/dL (3.4-5.0); ALKALINE PHOSPHATASE 145 U/L (46-116); ASPARTATE AMINOTRANSFERASE 18 U/L (15-37); BILIRUBIN,DIRECT 0.1 mg/dL (0.0-0.2); BILIRUBIN,TOTAL 0.4 mg/dL (0.2-1.0); CALCIUM, SERUM 10.5 mg/dL (8.5-10.1); CARBON DIOXIDE 22 mmol/L (21-32); CHLORIDE 88 mmol/L (98-107); CREATININE 3.7 mg/dL (0.6-1.3); LIPASE 335 U/L (73-393); POTASSIUM 4.7 mmol/L (3.5-5.1); SODIUM SERUM 127 mmol/L (136-145); TOTAL PROTEIN, SERUM 9.1 g/dL (6.4-8.2); UREA NITROGEN, BLOOD 46 mg/dL (7-18)
[2023-03-31 03:19] LABS: GLUCOSE 968 mg/dL (74-106)
[2023-03-31] MEDS ORDERED: INSULIN REGULAR, HUMAN 100 UNIT/ML 10 ML VIAL ONE (03:28)
[2023-03-31] MEDS ORDERED: INSULIN REGULAR, HUMAN 100 UNIT/ML 10 ML VIAL SQ ONE (03:30)
[2023-03-31] MEDS ORDERED: Medication Not On Formulary EA (Melatonin 3 MG) PO SCH (04:00)
[2023-03-31] MEDS ORDERED: ACETAMINOPHEN 325 MG TABLET PO PRN (04:00)
[2023-03-31] MEDS ORDERED: Z GUARD REMEDY 4 OZ OINT TP PRN (04:00)
[2023-03-31] MEDS ORDERED: MAG HYDROX/AL HYDROX/SIMETH 30 ML UDC PO PRN (04:00)
[2023-03-31] MEDS ORDERED: MECLIZINE HCL 25 MG TABLET PO PRN (04:00)
[2023-03-31] MEDS ORDERED: ACETAMINOPHEN ES 500 MG TABLET PO PRN (04:00)
[2023-03-31] MEDS ORDERED: ONDANSETRON HCL/PF 4 MG/2 ML VIAL IVP PRN (04:00)
[2023-03-31] MEDS ORDERED: DEXTROSE 50%-WATER 50 ML DISP.SYRIN IV PRN ×2 (04:00→17:30)
[2023-03-31] MEDS ORDERED: HYDROCODONE/APAP 5/325MG TABLET PO PRN (04:00)
[2023-03-31] MEDS ORDERED: IV NS 0.9% 1,000 ML IV PRN ×2 (04:00→07:40)
[2023-03-31] MEDS ORDERED: ZOLPIDEM TARTRATE 5 MG TABLET PO PRN (04:00)
[2023-03-31] MEDS ORDERED: MAGNESIUM HYDROXIDE 30 ML UDC PO PRN (04:00)
[2023-03-31 04:05] LABS: APPEARANCE,URINE CLEAR (CLEAR); COLOR,URINE YELLOW (YELLOW); PH,URINE 6.5 (5.0-8.0); PROTEIN,URINE TRACE mg/dl (NEGATIVE)
[2023-03-31 04:06] LABS: BILIRUBIN,URINE NEGATIVE (NEGATIVE); BLOOD, URINE NEGATIVE Ery/uL (NEGATIVE); KETONES,URINE NEGATIVE (NEGATIVE); LEUKOCYTE ESTERASE ,URINE NEGATIVE (NEGATIVE); NITRITE, URINE NEGATIVE (NEGATIVE); UGLUCOSE TRACE mg/dL (NEGATIVE); UROBILINOGEN,URINE 0.2 EU/dL (0.2)
[2023-03-31] MEDS: BLOOD SUGAR DIAGNOSTIC 1 EACH STRIP IN SCH ×5 (05:00→15:07)
[2023-03-31] MEDS: INSULIN REGULAR, HUMAN 100 UNIT/ML 3 ML VIAL SQ PRN ×5 (07:01→15:09)
[2023-03-31] MEDS ORDERED: LORA10TA7 PO (08:37)
[2023-03-31] MEDS ORDERED: LISI1TAB55 PO (08:37)
[2023-03-31] MEDS ORDERED: GABA-532 PO (08:37)
[2023-03-31] MEDS ORDERED: GUAI-1121 PO (08:37)
[2023-03-31] MEDS ORDERED: MONT10TA22 PO (08:37)
[2023-03-31] MEDS ORDERED: FENO200C PO (08:37)
[2023-03-31] MEDS ORDERED: METF-881 PO (08:37)
[2023-03-31] MEDS ORDERED: METO200T49 PO (08:37)
[2023-03-31] MEDS ORDERED: PANT40TA2 PO (08:37)
[2023-03-31] MEDS ORDERED: FAMOTIDINE (20 MG) 20 MG TABLET PO SCH (09:00)
[2023-03-31] MEDS ORDERED: CYCLOBENZAPRINE 10 MG TABLET PO PRN (09:00)
[2023-03-31] MEDS: GABAPENTIN 100 MG CAPSULE PO SCH ×3 (09:14→16:50)
[2023-03-31] MEDS: LEVETIRACETAM (250 MG) 250 MG TABLET PO SCH ×2 (09:14→16:50)
[2023-03-31] MEDS: CHOLECALCIFEROL (VITAMIN D 3) 400 UNIT TABLET PO SCH (09:14)
[2023-03-31] MEDS: METOPROLOL SUCCINATE 50 MG TAB.SR.24H PO SCH (09:15)
[2023-03-31] MEDS: CYANOCOBALAMIN 500 MCG TABLET PO SCH (09:15)
[2023-03-31] MEDS: ASPIRIN 81 MG TAB.CHEW PO SCH (09:15)
[2023-03-31] MEDS: AMLODIPINE BESYLATE 10 MG TABLET PO SCH (09:15)
[2023-03-31] MEDS: CLOPIDOGREL BISULFATE 75 MG TABLET PO SCH (09:15)
[2023-03-31] MEDS: PANTOPRAZOLE 40 MG TABLET.DR PO SCH (09:17)
[2023-03-31 12:17] LABS: CALCIUM, SERUM 9.4 mg/dL (8.5-10.1); CREATININE 2.8 mg/dL (0.6-1.3); POTASSIUM 3.8 mmol/L (3.5-5.1)
[2023-03-31] MEDS: BLOOD SUGAR DIAGNOSTIC 1 EACH STRIP VI SCH ×2 (17:08→21:16)
[2023-03-31] MEDS: *INSULIN REGULAR(HUMULIN R)HUM 100 UNIT/ML VIAL SQ PRN (17:11)
[2023-03-31] MEDS ORDERED: INSULIN REGULAR, HUMAN 100 UNIT/ML 3 ML VIAL SQ PRN (17:30)
[2023-03-31 20:37] LABS: CREATININE, URINE 286.4 MG/DL (30.0-125.0); URINE TOTAL PROTEIN 114.6 mg/dL (0-11.9)
[2023-03-31 20:41] LABS: APPEARANCE,URINE CLEAR (CLEAR); BILIRUBIN,URINE NEGATIVE (NEGATIVE); BLOOD, URINE 3+ Ery/uL (NEGATIVE); COLOR,URINE YELLOW (YELLOW); KETONES,URINE NEGATIVE (NEGATIVE); LEUKOCYTE ESTERASE ,URINE NEGATIVE (NEGATIVE); NITRITE, URINE NEGATIVE (NEGATIVE); PROTEIN,URINE 2+ mg/dl (NEGATIVE); UGLUCOSE 2+ mg/dL (NEGATIVE); UROBILINOGEN,URINE 0.2 EU/dL (0.2)
[2023-03-31] MEDS: ATORVASTATIN 40 MG TABLET PO SCH (21:16)
[2023-03-31 22:03] LABS: RBC,URINE 51-80 /HPF (0-2); WBC,URINE 0-2 /HPF (0-3)
[2023-03-31 22:04] LABS: ADD URINE CULTURE NO; BACTERIA,URINE RARE /HPF (None Seen); SQUAMOUS EPITHELIAL CELL,UR 0-2 /HPF (None Seen)
[2023-03-31 22:08] LABS: EOSINOPHIL,URINE None Seen
[2023-04-01] VITALS (13 sets, daily range): BP systolic 89–134; BP diastolic 56–81; TEMP 97.6–98.9; O2SAT 94–99
[2023-04-01 03:40] LABS: BASOPHILS % (AUTO) 0.5 % (0.0-2.0); EOSINOPHILS # (AUTO) 0.1 K/uL (0.0-0.7); EOSINOPHILS % (AUTO) 1.5 % (0.0-6.0); HEMATOCRIT 40 % (39-51); HEMOGLOBIN 12.9 g/dL (13.5-17.5); LYMPHOCYTES # (AUTO) 2.1 K/uL (0.8-4.8); LYMPHOCYTES % (AUTO) 30.8 % (20.0-44.0); MEAN CORPUSCULAR HEMOGLOBIN 26 PG (26.0-33.0); MEAN CORPUSCULAR HGB CONC 32 g/dl (31.0-36.0); MEAN CORPUSCULAR VOLUME 80 fL (80-96); MONOCYTES # (AUTO) 0.5 K/uL (0.1-1.30); NEUTROPHILS # (AUTO) 4.1 K/uL (1.8-8.9); NEUTROPHILS % (AUTO) 60.2 % (43.0-81.0); PLATELET COUNT (AUTO) 128 K/uL (150-450); RED BLOOD CELL COUNT(AUTO) 5.02 MIL/uL (4.5-6.0); RED CELL DISTRIBUTION WIDTH 13.1 % (11.5-15.0); WHITE BLOOD COUNT (AUTO) 6.8 K/uL (4.3-11.0)
[2023-04-01 04:01] LABS: ALBUMIN 3.5 g/dL (3.4-5.0); BILIRUBIN,TOTAL 0.3 mg/dL (0.2-1.0); CALCIUM, SERUM 8.9 mg/dL (8.5-10.1); CREATININE 2.5 mg/dL (0.6-1.3); MAGNESIUM 1.9 mg/dL (1.8-2.4); PHOSPHORUS 4.1 mg/dL (2.5-4.9); POTASSIUM 3.6 mmol/L (3.5-5.1)
[2023-04-01] MEDS: PANTOPRAZOLE 40 MG TABLET.DR PO SCH (07:28)
[2023-04-01] MEDS: BLOOD SUGAR DIAGNOSTIC 1 EACH STRIP VI SCH (07:33)
[2023-04-01] MEDS: *INSULIN REGULAR(HUMULIN R)HUM 100 UNIT/ML VIAL SQ PRN (07:36)
[2023-04-01] MEDS: LEVETIRACETAM (250 MG) 250 MG TABLET PO SCH ×2 (08:24→16:59)
[2023-04-01] MEDS: AMLODIPINE BESYLATE 10 MG TABLET PO SCH (08:25)
[2023-04-01] MEDS: CYANOCOBALAMIN 500 MCG TABLET PO SCH (08:25)
[2023-04-01] MEDS: CLOPIDOGREL BISULFATE 75 MG TABLET PO SCH (08:25)
[2023-04-01] MEDS: GABAPENTIN 100 MG CAPSULE PO SCH ×3 (08:25→16:59)
[2023-04-01] MEDS: METOPROLOL SUCCINATE 50 MG TAB.SR.24H PO SCH (08:25)
[2023-04-01] MEDS: CHOLECALCIFEROL (VITAMIN D 3) 400 UNIT TABLET PO SCH (08:26)
[2023-04-01] MEDS: ASPIRIN 81 MG TAB.CHEW PO SCH (08:30)
[2023-04-01] MEDS ORDERED: INSULIN REGULAR, HUMAN 100 UNIT/ML 3 ML VIAL SQ PRN (12:30)
[2023-04-01] MEDS ORDERED: DEXTROSE 50%-WATER 50 ML DISP.SYRIN IV PRN ×2 (12:30→13:00)
[2023-04-01] MEDS ORDERED: BLOOD SUGAR DIAGNOSTIC 1 EACH STRIP IN SCH (13:00)
[2023-04-01] MEDS: INSULIN REGULAR, HUMAN 100 UNIT/ML 3 ML VIAL SQ PRN ×2 (13:33→17:06)
[2023-04-01] MEDS: BLOOD SUGAR DIAGNOSTIC 1 EACH STRIP IN SCH (17:04)
[2023-04-01] MEDS: ATORVASTATIN 40 MG TABLET PO SCH (21:53)
[2023-04-01] MEDS ORDERED: INSULIN GLARGINE, 100 UNIT/ML CARTRIDGE SQ SCH (22:00)
[2023-04-02] MEDS: BLOOD SUGAR DIAGNOSTIC 1 EACH STRIP IN SCH ×3 (00:10→11:21)
[2023-04-02] MEDS: INSULIN REGULAR, HUMAN 100 UNIT/ML 3 ML VIAL SQ PRN ×3 (00:18→11:23)
[2023-04-02 04:00] VITALS: BP 114/57; TEMP 97.8; O2SAT 96
[2023-04-02 07:00] VITALS: BP 114/79; TEMP 97.9; O2SAT 99
[2023-04-02 07:40] LABS: CALCIUM, SERUM 9.1 mg/dL (8.5-10.1); CREATININE 2.3 mg/dL (0.6-1.3); POTASSIUM 3.3 mmol/L (3.5-5.1)
[2023-04-02 08:07] LABS: PTH, INTACT 30 pg/mL (15-65)
[2023-04-02] MEDS: CHOLECALCIFEROL (VITAMIN D 3) 400 UNIT TABLET PO SCH (08:14)
[2023-04-02] MEDS: ASPIRIN 81 MG TAB.CHEW PO SCH (08:14)
[2023-04-02] MEDS: LEVETIRACETAM (250 MG) 250 MG TABLET PO SCH (08:15)
[2023-04-02] MEDS: PANTOPRAZOLE 40 MG TABLET.DR PO SCH (08:15)
[2023-04-02] MEDS: METOPROLOL SUCCINATE 50 MG TAB.SR.24H PO SCH (08:15)
[2023-04-02] MEDS: CYANOCOBALAMIN 500 MCG TABLET PO SCH (08:15)
[2023-04-02] MEDS: CLOPIDOGREL BISULFATE 75 MG TABLET PO SCH (08:16)
[2023-04-02] MEDS: GABAPENTIN 100 MG CAPSULE PO SCH ×2 (08:16→13:11)
[2023-04-02] MEDS: AMLODIPINE BESYLATE 10 MG TABLET PO SCH (08:16)
[2023-04-02] MEDS ORDERED: METO50TA7 PO (10:12)
[2023-04-02] MEDS ORDERED: LEVE250T2 PO (10:12)
[2023-04-02] MEDS ORDERED: Insulin Glargine,Hum SQ (10:12)
[2023-04-02] MEDS ORDERED: POTASSIUM CHLORIDE 10 MEQ TABLET.SA PO ONE (10:30)
[2023-04-02 12:00] VITALS: BP 108/70; TEMP 98.6; O2SAT 96
[2023-04-03 06:06] LABS: *SPE ALBUMIN 3.2 g/dL (2.9-4.4); *SPE ALPHA-1-GLOBULIN 0.2 g/dL (0.0-0.4); *SPE ALPHA-2-GLOBULIN 0.8 g/dL (0.4-1.0); *SPE BETA GLOBULIN 1.1 g/dL (0.7-1.3); *SPE GLOBULIN, TOTAL 3.1 g/dL (2.2-3.9); *SPE M-SPIKE Not Observed g/dL (Not Observed); *SPE PROTEIN TOTAL 6.3 g/dL (6.0-8.5)
== END 2023-04-02 16:01 | DRG 420 ==
LOC: ER 02:05 → ICU 08:09 → MEDSG1 04-01 10:35
PROVIDERS: ADMIT Nurse Practitioner Acute Care; ATTEND Internal Medicine
PROC: 05HC33Z Insertion of Infusion Device into Left Basilic Vein, Percutaneous Approach (ICD-10-PCS; principal; 2023-03-31)
DX: E11.00 Type 2 diabetes mellitus with hyperosmolarity without nonketotic hyperglycemic-hyperosmolar coma (NKHHC) (principal); N17.0 Acute kidney failure with tubular necrosis; E87.1 Hypo-osmolality and hyponatremia; G40.909 Epilepsy, unspecified, not intractable, without status epilepticus; E86.1 Hypovolemia; E86.0 Dehydration; I12.9 Hypertensive chronic kidney disease with stage 1 through stage 4 chronic kidney disease, or unspecified chronic kidney disease; N18.9 Chronic kidney disease, unspecified; K21.9 Gastro-esophageal reflux disease without esophagitis; E11.22 Type 2 diabetes mellitus with diabetic chronic kidney disease; E11.65 Type 2 diabetes mellitus with hyperglycemia; I25.10 Atherosclerotic heart disease of native coronary artery without angina pectoris; Z95.5 Presence of coronary angioplasty implant and graft; E78.5 Hyperlipidemia, unspecified; Z86.16 Personal history of COVID-19; J45.909 Unspecified asthma, uncomplicated; F79 Unspecified intellectual disabilities; Z79.82 Long term (current) use of aspirin; Z88.0 Allergy status to penicillin; Z91.048 Other nonmedicinal substance allergy status; Z79.84 Long term (current) use of oral hypoglycemic drugs; Z79.899 Other long term (current) drug therapy; Z79.02 Long term (current) use of antithrombotics/antiplatelets; E83.52 Hypercalcemia; E11.42 Type 2 diabetes mellitus with diabetic polyneuropathy; E66.9 Obesity, unspecified; N50.819 Testicular pain, unspecified; Z68.33 Body mass index [BMI] 33.0-33.9, adult
CPT/HCPCS: 36415; 71045-TC; 76770-TC; 76870-TC; 80048-TC; 80053-TC; 80076-TC; 81001; 82010-TC; 82550-TC; 82553; 82570-TC; 82803-TC; 82947-TC; 82962-TC; 83690-TC; 83735-TC; 83970; 84100-TC; 84155; 84165; 84300-TC; 84484-TC; 85025-TC; 87081-TC; 87086-TC; A4223; G0378; J1815; J7030

== ENCOUNTER 2023-04-04 23:44 | Inpatient (IN) | payer MEDICAID ==
[~2023-04-04] VITALS: Ht 177.8 cm; Wt 108.9 kg
[~2023-04-04 23:44] MED LIST changes: -ACET-2605 PO; -CETI1TAB9 PO; -CYCL5TAB PO; -FAMO-131 PO; +FENO200C PO; +GUAI-1121 PO; -GUAI5SYR GT; -HYDR-4209 PO; +Insulin Glargine,Hum SQ; +LISI1TAB55 PO; +LORA10TA7 PO; -MECL-159 PO; -METF-440 PO; +METF-881 PO; +MONT10TA22 PO; -ONDA4TAB5 PO
[2023-04-05 01:16] LABS: BASOPHILS % (AUTO) 0.4 % (0.0-2.0); EOSINOPHILS % (AUTO) 0.7 % (0.0-6.0); HEMATOCRIT 43 % (39-51); HEMOGLOBIN 13.7 g/dL (13.5-17.5); LYMPHOCYTES # (AUTO) 1.4 K/uL (0.8-4.8); LYMPHOCYTES % (AUTO) 21.9 % (20.0-44.0); MEAN CORPUSCULAR HEMOGLOBIN 25 PG (26.0-33.0); MEAN CORPUSCULAR HGB CONC 32 g/dl (31.0-36.0); MEAN CORPUSCULAR VOLUME 80 fL (80-96); MONOCYTES # (AUTO) 0.5 K/uL (0.1-1.30); MONOCYTES % (AUTO) 7.9 % (2.0-12.0); NEUTROPHILS # (AUTO) 4.4 K/uL (1.8-8.9); NEUTROPHILS % (AUTO) 69.1 % (43.0-81.0); PLATELET COUNT (AUTO) 129 K/uL (150-450); RED CELL DISTRIBUTION WIDTH 13.8 % (11.5-15.0); WHITE BLOOD COUNT (AUTO) 6.4 K/uL (4.3-11.0)
[2023-04-05 01:20] LABS: APPEARANCE,URINE CLEAR (CLEAR); BILIRUBIN,URINE NEGATIVE (NEGATIVE); BLOOD, URINE 1+ Ery/uL (NEGATIVE); COLOR,URINE YELLOW (YELLOW); KETONES,URINE TRACE mg/dL (NEGATIVE); LEUKOCYTE ESTERASE ,URINE NEGATIVE (NEGATIVE); NITRITE, URINE NEGATIVE (NEGATIVE); PH,URINE 5.5 (5.0-8.0); PROTEIN,URINE NEGATIVE (NEGATIVE); UGLUCOSE 3+ mg/dL (NEGATIVE); UROBILINOGEN,URINE 0.2 EU/dL (0.2)
[2023-04-05 01:28] LABS: ADD URINE CULTURE NO; BACTERIA,URINE Rare /HPF (None Seen); SQUAMOUS EPITHELIAL CELL,UR Few /HPF (None Seen); WBC,URINE 0-2 /HPF (0-3)
[2023-04-05 01:28] LABS: CALCIUM, SERUM 9.9 mg/dL (8.5-10.1); CREATININE 2.9 mg/dL (0.6-1.3); POTASSIUM 4.8 mmol/L (3.5-5.1)
[2023-04-05 01:32] LABS: BILIRUBIN,DIRECT 0.1 mg/dL (0.0-0.2); BILIRUBIN,TOTAL 0.4 mg/dL (0.2-1.0); TOTAL PROTEIN, SERUM 8.1 g/dL (6.4-8.2)
[2023-04-05] MEDS ORDERED: ASPIRIN 325 MG TABLET ONE (01:58)
[2023-04-05] MEDS ORDERED: ASPIRIN 325 MG TABLET PO ONE (02:00)
[2023-04-05] MEDS ORDERED: IV NS 0.9% 1,000 ML IV ONE (03:30)
[2023-04-05] MEDS ORDERED: INSULIN REGULAR, HUMAN 100 UNIT/ML 10 ML VIAL SQ ONE (03:30)
[2023-04-05] MEDS ORDERED: INSULIN REGULAR, HUMAN 100 UNIT/ML 10 ML VIAL ONE (03:30)
[2023-04-05] MEDS ORDERED: ONDANSETRON HCL/PF 4 MG/2 ML VIAL IVP PRN (07:00)
[2023-04-05] MEDS ORDERED: DEXTROSE 50%-WATER 50 ML DISP.SYRIN IV PRN (07:00)
[2023-04-05] MEDS ORDERED: ACETAMINOPHEN 325 MG TABLET PO PRN (07:00)
[2023-04-05] MEDS: LISINOPRIL (20MG) 20 MG TABLET PO SCH (09:00)
[2023-04-05] MEDS ORDERED: ENOXAPARIN SODIUM 40 MG/0.4 ML DISP.SYRIN SQ SCH (09:00)
[2023-04-05] MEDS: HYDROCHLOROTHIAZIDE 25 MG TABLET PO SCH (09:00)
[2023-04-05] MEDS ORDERED: ASPIRIN 81 MG TAB.CHEW PO SCH (09:00)
[2023-04-05] MEDS: AMLODIPINE BESYLATE 10 MG TABLET PO SCH (09:00)
[2023-04-05] MEDS: METOPROLOL SUCCINATE 50 MG TAB.SR.24H PO SCH (10:00)
[2023-04-05] MEDS: PANTOPRAZOLE 40 MG TABLET.DR PO SCH (11:26)
[2023-04-05] MEDS: CYANOCOBALAMIN 500 MCG TABLET PO SCH (11:26)
[2023-04-05] MEDS: LEVETIRACETAM (250 MG) 250 MG TABLET PO SCH ×2 (11:26→17:43)
[2023-04-05] MEDS: MONTELUKAST SODIUM (10MG) 10 MG TABLET PO SCH (11:27)
[2023-04-05] MEDS: GABAPENTIN 100 MG CAPSULE PO SCH ×2 (11:27→22:31)
[2023-04-05] MEDS: CLOPIDOGREL BISULFATE 75 MG TABLET PO SCH (11:28)
[2023-04-05] MEDS: CHOLECALCIFEROL (VITAMIN D 3) 400 UNIT TABLET PO SCH (11:33)
[2023-04-05] MEDS: METFORMIN XR 500 MG TAB.SR.24H PO SCH (11:52)
[2023-04-05] MEDS: ENOXAPARIN SODIUM 30 MG/0.3 ML DISP.SYRIN SQ SCH (11:56)
[2023-04-05] MEDS: INSULIN REGULAR, HUMAN 100 UNIT/ML 3 ML VIAL SQ PRN ×3 (12:01→19:25)
[2023-04-05] MEDS: Fenofibrate 48 MG TABLET PO SCH (12:01)
[2023-04-05] MEDS: BLOOD SUGAR DIAGNOSTIC 1 EACH STRIP VI SCH ×4 (12:02→22:41)
[2023-04-05 13:00] VITALS: BP 119/70; TEMP 98.3; O2SAT 96
[2023-04-05 16:00] VITALS: BP 111/71; TEMP 98.5; O2SAT 98
[2023-04-05] MEDS: IV NS 0.9% 1,000 ML IV PRN (17:12)
[2023-04-05 20:00] VITALS: BP 119/71; TEMP 98.2; O2SAT 96
[2023-04-05] MEDS ORDERED: ATORVASTATIN 10 MG TABLET PO SCH (22:00)
[2023-04-05] MEDS: LORATADINE 10 MG TABLET PO SCH (22:30)
[2023-04-05] MEDS: ATORVASTATIN 40 MG TABLET PO SCH (22:30)
[2023-04-05] MEDS: INSULIN GLARGINE, 100 UNIT/ML CARTRIDGE SQ SCH (22:33)
[2023-04-05] MEDS: *INSULIN REGULAR(HUMULIN R)HUM 100 UNIT/ML VIAL SQ PRN (22:41)
[2023-04-06] VITALS: BP 96/56; TEMP 98; TEMP 98.1; O2SAT 96
[2023-04-06 04:00] VITALS: BP 121/63; TEMP 98.1; O2SAT 97
[2023-04-06] MEDS: IV NS 0.9% 1,000 ML IV PRN ×2 (06:15→19:23)
[2023-04-06] MEDS: INSULIN REGULAR, HUMAN 100 UNIT/ML 3 ML VIAL SQ PRN ×2 (06:25→12:05)
[2023-04-06] MEDS: BLOOD SUGAR DIAGNOSTIC 1 EACH STRIP VI SCH ×4 (06:39→22:33)
[2023-04-06 08:00] VITALS: BP 107/62; TEMP 98.2; O2SAT 100
[2023-04-06] MEDS: PANTOPRAZOLE 40 MG TABLET.DR PO SCH (08:54)
[2023-04-06] MEDS: GABAPENTIN 100 MG CAPSULE PO SCH ×2 (08:55→22:30)
[2023-04-06] MEDS: CYANOCOBALAMIN 500 MCG TABLET PO SCH (08:55)
[2023-04-06] MEDS: MONTELUKAST SODIUM (10MG) 10 MG TABLET PO SCH (08:55)
[2023-04-06] MEDS: LEVETIRACETAM (250 MG) 250 MG TABLET PO SCH ×2 (08:56→17:22)
[2023-04-06] MEDS: Fenofibrate 48 MG TABLET PO SCH (08:56)
[2023-04-06] MEDS: METFORMIN XR 500 MG TAB.SR.24H PO SCH (08:56)
[2023-04-06] MEDS: CLOPIDOGREL BISULFATE 75 MG TABLET PO SCH (08:57)
[2023-04-06] MEDS: METOPROLOL SUCCINATE 50 MG TAB.SR.24H PO SCH (08:59)
[2023-04-06] MEDS: LISINOPRIL (20MG) 20 MG TABLET PO SCH (09:00)
[2023-04-06] MEDS: HYDROCHLOROTHIAZIDE 25 MG TABLET PO SCH (09:01)
[2023-04-06] MEDS: AMLODIPINE BESYLATE 10 MG TABLET PO SCH (09:01)
[2023-04-06] MEDS: CHOLECALCIFEROL (VITAMIN D 3) 400 UNIT TABLET PO SCH (09:16)
[2023-04-06] MEDS: ENOXAPARIN SODIUM 30 MG/0.3 ML DISP.SYRIN SQ SCH (09:17)
[2023-04-06 10:10] LABS: CALCIUM, SERUM 8.7 mg/dL (8.5-10.1); CREATININE 2.2 mg/dL (0.6-1.3); MAGNESIUM 1.7 mg/dL (1.8-2.4); PHOSPHORUS 2.7 mg/dL (2.5-4.9); POTASSIUM 3.7 mmol/L (3.5-5.1)
[2023-04-06 10:36] LABS: BASOPHILS % (AUTO) 0.7 % (0.0-2.0); EOSINOPHILS # (AUTO) 0.1 K/uL (0.0-0.7); EOSINOPHILS % (AUTO) 1.2 % (0.0-6.0); HEMATOCRIT 38 % (39-51); HEMOGLOBIN 12.4 g/dL (13.5-17.5); LYMPHOCYTES # (AUTO) 1.4 K/uL (0.8-4.8); LYMPHOCYTES % (AUTO) 25.2 % (20.0-44.0); MEAN CORPUSCULAR HEMOGLOBIN 26 PG (26.0-33.0); MEAN CORPUSCULAR HGB CONC 33 g/dl (31.0-36.0); MEAN CORPUSCULAR VOLUME 79 fL (80-96); MONOCYTES # (AUTO) 0.4 K/uL (0.1-1.30); MONOCYTES % (AUTO) 6.6 % (2.0-12.0); NEUTROPHILS # (AUTO) 3.8 K/uL (1.8-8.9); NEUTROPHILS % (AUTO) 66.3 % (43.0-81.0); PLATELET COUNT (AUTO) 132 K/uL (150-450); RED BLOOD CELL COUNT(AUTO) 4.81 MIL/uL (4.5-6.0); RED CELL DISTRIBUTION WIDTH 13.1 % (11.5-15.0); WHITE BLOOD COUNT (AUTO) 5.7 K/uL (4.3-11.0)
[2023-04-06 12:00] VITALS: BP 110/71; TEMP 98; O2SAT 100
[2023-04-06] MEDS: *INSULIN REGULAR(HUMULIN R)HUM 100 UNIT/ML VIAL SQ PRN ×2 (17:51→22:24)
[2023-04-06 20:00] VITALS: BP 103/65; TEMP 99.3; O2SAT 92; O2SAT 93
[2023-04-06] MEDS: INSULIN GLARGINE, 100 UNIT/ML CARTRIDGE SQ SCH (22:22)
[2023-04-06] MEDS: ATORVASTATIN 40 MG TABLET PO SCH (22:29)
[2023-04-06] MEDS: LORATADINE 10 MG TABLET PO SCH (22:30)
[2023-04-07] MEDS: INSULIN REGULAR, HUMAN 100 UNIT/ML 3 ML VIAL SQ PRN ×2 (06:48→12:15)
[2023-04-07 07:00] VITALS: BP 100/62; TEMP 98.1; O2SAT 95
[2023-04-07 07:43] LABS: EOSINOPHIL,URINE None Seen
[2023-04-07 07:44] LABS: APPEARANCE,URINE CLEAR (CLEAR); BILIRUBIN,URINE NEGATIVE (NEGATIVE); BLOOD, URINE NEGATIVE Ery/uL (NEGATIVE); COLOR,URINE YELLOW (YELLOW); KETONES,URINE NEGATIVE (NEGATIVE); LEUKOCYTE ESTERASE ,URINE NEGATIVE (NEGATIVE); NITRITE, URINE NEGATIVE (NEGATIVE); PROTEIN,URINE NEGATIVE (NEGATIVE); UGLUCOSE 3+ mg/dL (NEGATIVE); UROBILINOGEN,URINE 0.2 EU/dL (0.2)
[2023-04-07 07:59] LABS: CREATININE, URINE 133.9 MG/DL (30.0-125.0); URINE TOTAL PROTEIN 16.3 mg/dL (0-11.9)
[2023-04-07] MEDS: GABAPENTIN 100 MG CAPSULE PO SCH (08:09)
[2023-04-07] MEDS: CYANOCOBALAMIN 500 MCG TABLET PO SCH (08:09)
[2023-04-07] MEDS: LEVETIRACETAM (250 MG) 250 MG TABLET PO SCH (08:10)
[2023-04-07] MEDS: CHOLECALCIFEROL (VITAMIN D 3) 400 UNIT TABLET PO SCH (08:11)
[2023-04-07] MEDS: AMLODIPINE BESYLATE 10 MG TABLET PO SCH (08:12)
[2023-04-07] MEDS: METOPROLOL SUCCINATE 50 MG TAB.SR.24H PO SCH (08:12)
[2023-04-07 08:13] VITALS: BP 110/63
[2023-04-07] MEDS: CLOPIDOGREL BISULFATE 75 MG TABLET PO SCH (08:13)
[2023-04-07] MEDS: HYDROCHLOROTHIAZIDE 25 MG TABLET PO SCH (08:13)
[2023-04-07] MEDS: MONTELUKAST SODIUM (10MG) 10 MG TABLET PO SCH (08:14)
[2023-04-07] MEDS: PANTOPRAZOLE 40 MG TABLET.DR PO SCH (08:14)
[2023-04-07] MEDS: Fenofibrate 48 MG TABLET PO SCH (08:14)
[2023-04-07] MEDS: BLOOD SUGAR DIAGNOSTIC 1 EACH STRIP VI SCH ×2 (08:15→12:06)
[2023-04-07] MEDS: ENOXAPARIN SODIUM 30 MG/0.3 ML DISP.SYRIN SQ SCH (08:34)
[2023-04-07 08:55] LABS: BASOPHILS % (AUTO) 0.5 % (0.0-2.0); EOSINOPHILS # (AUTO) 0.1 K/uL (0.0-0.7); EOSINOPHILS % (AUTO) 1.3 % (0.0-6.0); HEMATOCRIT 40 % (39-51); HEMOGLOBIN 12.6 g/dL (13.5-17.5); LYMPHOCYTES # (AUTO) 1.4 K/uL (0.8-4.8); LYMPHOCYTES % (AUTO) 24.8 % (20.0-44.0); MEAN CORPUSCULAR HEMOGLOBIN 25 PG (26.0-33.0); MEAN CORPUSCULAR HGB CONC 32 g/dl (31.0-36.0); MEAN CORPUSCULAR VOLUME 80 fL (80-96); MONOCYTES # (AUTO) 0.5 K/uL (0.1-1.30); NEUTROPHILS # (AUTO) 3.8 K/uL (1.8-8.9); NEUTROPHILS % (AUTO) 65.4 % (43.0-81.0); PLATELET COUNT (AUTO) 151 K/uL (150-450); RED BLOOD CELL COUNT(AUTO) 4.98 MIL/uL (4.5-6.0); RED CELL DISTRIBUTION WIDTH 13.6 % (11.5-15.0); WHITE BLOOD COUNT (AUTO) 5.8 K/uL (4.3-11.0)
[2023-04-07 09:07] LABS: ALBUMIN 3.5 g/dL (3.4-5.0); BILIRUBIN,TOTAL 0.5 mg/dL (0.2-1.0); CALCIUM, SERUM 9.1 mg/dL (8.5-10.1); CREATININE 2.1 mg/dL (0.6-1.3); MAGNESIUM 1.5 mg/dL (1.8-2.4); PHOSPHORUS 2.7 mg/dL (2.5-4.9); POTASSIUM 3.8 mmol/L (3.5-5.1); TOTAL PROTEIN, SERUM 7.2 g/dL (6.4-8.2)
== END 2023-04-07 14:30 | DRG 198 ==
LOC: ER 23:48 → TELE 04-05 08:20 → MED 04-06 15:17
PROVIDERS: ADMIT Internal Medicine; ATTEND Internal Medicine
DX: I25.119 Atherosclerotic heart disease of native coronary artery with unspecified angina pectoris (principal); E87.20 Acidosis, unspecified; E11.22 Type 2 diabetes mellitus with diabetic chronic kidney disease; E11.40 Type 2 diabetes mellitus with diabetic neuropathy, unspecified; I12.9 Hypertensive chronic kidney disease with stage 1 through stage 4 chronic kidney disease, or unspecified chronic kidney disease; N18.9 Chronic kidney disease, unspecified; G40.909 Epilepsy, unspecified, not intractable, without status epilepticus; E66.9 Obesity, unspecified; Z68.34 Body mass index [BMI] 34.0-34.9, adult; Z95.5 Presence of coronary angioplasty implant and graft; E78.5 Hyperlipidemia, unspecified; Z86.16 Personal history of COVID-19; I25.2 Old myocardial infarction; J45.909 Unspecified asthma, uncomplicated; Z87.39 Personal history of other diseases of the musculoskeletal system and connective tissue; Z88.0 Allergy status to penicillin; Z91.048 Other nonmedicinal substance allergy status; Z79.4 Long term (current) use of insulin; Z79.899 Other long term (current) drug therapy; Z79.82 Long term (current) use of aspirin; E11.65 Type 2 diabetes mellitus with hyperglycemia; F79 Unspecified intellectual disabilities; Z79.02 Long term (current) use of antithrombotics/antiplatelets; Z79.84 Long term (current) use of oral hypoglycemic drugs; Z74.09 Other reduced mobility
CPT/HCPCS: 36415; 71045-TC; 80048-TC; 80053-TC; 80061-TC; 80076-TC; 81001; 82570-TC; 82962-TC; 83690-TC; 83735-TC; 84100-TC; 84300-TC; 84484-TC; 85025-TC; 87081-TC; 93307-TC; A4223; G0378; J1650; J1815; J2405; J7030